=== PATIENT | female | born 1995 | race Caucasian/White ===

== ENCOUNTER → 2020-03-09 | Outpatient (CLI) | payer BC ==
--- NOTE | 2020-03-09 12:05 | Diagnostic Imaging Report ---
PROCEDURE: US Non-ob pelvis comp/trans. INDICATION: Left adnexal tenderness. TECHNIQUE: Multiple real-time grayscale sonographic images were obtained of the pelvis transabdominally and endovaginally. CORRELATION STUDY: None. FINDINGS: UTERUS: 6.8 x 3.9 x 4.4 cm. The uterus appears unremarkable. ENDOMETRIUM: 3 mm. The endometrium appearing unremarkable. RIGHT OVARY: 2.0 x 2.9 x 1.4 cm. The right ovary has an unremarkable appearance. No concerning mass. Blood flow is present. LEFT OVARY: Not visualized. Nonvisualization may be owing to its position or perhaps obscuration by overlying bowel gas. No definitive abnormal adnexal mass lesion. IMPRESSION: 1. Small amount of pelvic fluid, within physiologic range. There is nonvisualization of the left ovary. Dictated by: Dictated on workstation # [id number]
== END ==
LOC: RAD 09:55
PROVIDERS: ATTEND Nurse Practitioner Women's Health
DX: R10.2 Pelvic and perineal pain (principal)
CPT/HCPCS: 76830; 76856

== ENCOUNTER 2021-07-20 09:49 | Outpatient (CLI) | payer BC ==
[~2021-07-20] VITALS: Ht 154.9 cm; Wt 63.5 kg
[2021-07-20 10:08] VITALS: BP 121/76
[2021-07-20] MEDS ORDERED: EPINEPHrine INJECTION 1 MG/ML AMP IM PRN (10:15)
[2021-07-20] MEDS ORDERED: BAMLANIVIMAB 700 MG/ETESEVIMAB 1,400 MG IN NS IV ONE ×3 (10:15)
[2021-07-20] MEDS ORDERED: ACETAMINOPHEN 500 MG TAB (TYLENOL) PO PRN (10:15)
[2021-07-20] MEDS ORDERED: diphenhydrAMINE 50 MG/ML INJ (BENADRYL) IV PRN (10:15)
[2021-07-20] MEDS ORDERED: ONDANSETRON 4 MG/2 ML (SDV) Z0FRAN IV PRN (10:15)
[2021-07-20 10:53] VITALS: BP 143/83
== END 2021-07-20 11:37 | disposition home or self-care (01) ==
LOC: INFUSION 09:49
PROVIDERS: ATTEND Nurse Practitioner Family
DX: U07.1 COVID-19 (principal)